=== PATIENT | female | born 2000 ===

== ENCOUNTER 2020-10-16 15:09 | Inpatient (IN) | payer MEDICAID ==
[~2020-10-16] VITALS: Ht 165.1 cm; Wt 80.0 kg
[2020-10-17] VITALS (29 sets, daily range): BP systolic 117–144; BP diastolic 58–94; PULSE 61–131; TEMP 97.5–98.4
[2020-10-17] MEDS ORDERED: PRENATAL TABLET PO (06:32)
--- NOTE | 2020-10-17 08:05 | NUR ---
Pt and spouse arrive ambulatory to unit at 0655 for scheduled induction of labor. Pt changes into gown, EFM explained and placed. VS taken. Pt states she is very anxious, visibly shaking. Pt denies vaginal bleeding, leaking of fluid. Pt reports feeling "tightening or cramping" since last night, reports good movement. Consents discussed and signed, assessment complete. IV started in RH, labs drawn, LR started per protocol. Pt denies further needs/questions at this time.
[2020-10-17 08:44] LABS: BASO % 0.3 % (0.0-2.0); EOS # 0.1 (0.0-0.7); EOS % 0.8 % (0-4.0); GRAN # 6.8 (1.4-6.5); GRAN % 71.1 % (42.2-75.2); HEMOGLOBIN 13.1 g/dl (12.5-16.0); LYMPH # 1.7 (1.2-3.4); LYMPH % 17.5 % (20.0-51.0); MEAN CELL VOLUME 88 fl (80.0-100.0); MEAN CORPUSCULAR HEMOGLOBIN 30 pg (27.0-31.0); MEAN CORPUSCULAR HGB CONC 34 g/dl (33.0-37.0); MEAN PLATELET VOLUME 12.7 fl (7.4-10.4); MONO # 0.9 (0.1-0.6); MONO % 9.8 % (1.7-9.3); PLATELET COUNT 130 K/mm3 (130-400); RED BLOOD COUNT 4.42 M/mm3 (4.10-5.30); REDCELL DISTRIBUTION WIDTH-CV 12.5 % (11.5-14.5)
--- NOTE | 2020-10-17 09:26 | NUR ---
RN at bedside. Variable noted on FHR tracing. Tracing not complete, but FHR changes audible.
--- NOTE | 2020-10-17 09:49 | NUR ---
0931 - Dr. Geronimo to pt bedside. SVE /-2 per provider. AROM at this time, mec fluid noted. Pt repositioned SF for comfort.
--- NOTE | 2020-10-17 10:22 | NUR ---
0950 - Recurrent variable decelerations noted with last 3 contractions. Pt repositioned RL at this time. 0953 - Continued varaible delceration noted with contraction. Pt repositioned LL at this time. 1000 - Variable declerations resolved at this time.
--- NOTE | 2020-10-17 14:39 | NUR ---
1135 - Recurrent variable decelerations with contractions over last 10 minutes. Pt moved to bed. SVE 9/100/-1. Dr. Geronimo notifed, en route to hospital. Gerard Goodrich RN of nursery notified. Pt returns to standing at bedside. RN remains at bedside. 1150 - Dr. Geronimo to bedside. SVE per provider AL/100/0. Dr. Geronimo encourages pt to ardon down with contractions. Physician remains on unit. Gerard Goodrich RN of nursery to bedside. 1200 - Dr. Geronimo returns to bedside. SVE per provider 10/100/0. Physician and RN remain in room, encouraging and coaching pt to push. Pt intermittently uncontrolled. Returns to focus with coaching. 1230 - Variable declerations following contractions and pushing. FHR recovers quickly to baseline. FHR difficult to trace from [id number] due to maternal movement, FHR audible at 70-90 bpm. Pitocin stopped at 1232. Pt encouraged to relax. [id number] - Pt continues pushing with RN and physician at bedside. FHR baseline indeterminate at this time with marked variability. 1258 - Male born via . 30 second shoulder dystocia, relieved with position change and pushing efforts. placed on mother's abdomen where dried and stimulated. Care of transferred to Gerard Goodrich RN of nursery. Cord blood collected. 1305 - Placenta delivered spontaneously by Dr. Geronimo. Pitocin started per protocol. Lidocaine administered by Dr. Geronimo for repair of superficial tear. See phsyician notes. Pericare provided, ice pack placed. Pt repositioned for comfort.
[2020-10-18 03:30] VITALS: BP 120/68; PULSE 81; TEMP 97.9
[2020-10-18 07:30] VITALS: BP 125/69; PULSE 72; TEMP 98.8
[2020-10-18 11:11] LABS: MEAN CELL VOLUME 90 fl (80.0-100.0); MEAN CORPUSCULAR HGB CONC 33 g/dl (33.0-37.0); MEAN PLATELET VOLUME 12.6 fl (7.4-10.4); PLATELET COUNT 120 K/mm3 (130-400); RED BLOOD COUNT 3.65 M/mm3 (4.10-5.30); REDCELL DISTRIBUTION WIDTH-CV 12.6 % (11.5-14.5)
[2020-10-18 11:12] LABS: HEMATOCRIT 32.8 % (37.0-47.0); MEAN CORPUSCULAR HEMOGLOBIN 30 pg (27.0-31.0)
[2020-10-18 11:13] LABS: HEMOGLOBIN 10.8 g/dl (12.5-16.0)
[2020-10-18] MEDS ORDERED: IBU600 MG PO (12:54)
== END 2020-10-18 15:15 | disposition home or self-care (01) | DRG 807 ==
LOC: LDR 10-17 06:20 → OB 10-17 15:08
PROVIDERS: Student in an Organized Health Care Education/Training Program; ADMIT Obstetrics & Gynecology
PROC: 10E0XZZ Delivery of Products of Conception, External Approach (ICD-10-PCS; principal; 2020-10-17)
PROC: 10907ZC Drainage of Amniotic Fluid, Therapeutic from Products of Conception, Via Natural or Artificial Opening (ICD-10-PCS; 2020-10-17)
PROC: 0HQ9XZZ Repair Perineum Skin, External Approach (ICD-10-PCS; 2020-10-17)
DX: O99.12 Other diseases of the blood and blood-forming organs and certain disorders involving the immune mechanism complicating childbirth (principal); Z37.0 Single live birth; D69.6 Thrombocytopenia, unspecified; O70.0 First degree perineal laceration during delivery; O66.0 Obstructed labor due to shoulder dystocia; Z3A.39 39 weeks gestation of pregnancy
CPT/HCPCS: J2210; J2590; J7120